=== PATIENT | male | born 1950 | race Caucasian/White ===

== ENCOUNTER 2019-01-25 11:52 | Emergency (ER) | payer MEDICARE, BC ==
[2019-01-25] MEDS ORDERED: AMPICILLIN SOD/SULBACTAM 3 GM VIAL IV ONE (12:09)
[2019-01-25] MEDS ORDERED: ACETAMINOPHEN SOLN 325 MG/10.15 ML UDCUP PO ONE (12:12)
--- NOTE | 2019-01-25 12:14 | ER Document Report ---
ED Medical Screen (RME) - General Chief Complaint: Laceration Stated Complaint: LEFT HAND LACERATION Time Seen by Provider: 01/25/19 12:03 Notes: [id number] male with hypertension and kas-[id number]-haczdeumm diabetes mellitus presents to the emergency department for a left pinky injury sustained just prior to arrival. Patient states he got his finger caught in a luis belt from a boat hoist and has mostly amputated the left pinky finger at the DIP. Patient complains of mild to moderate pain, wound is still bleeding. Exam: No acute distress, the left pinky finger distal to the DIP is mostly amputated hanging on one side and dusky in appearance I have greeted and performed a rapid initial assessment of this patient. A comprehensive ED assessment and evaluation of the patient, analysis of test results and completion of medical decision making process will be conducted by an additional ED providers. TRAVEL OUTSIDE OF THE [place] IN LAST 30 DAYS: No - Related Data Allergies/Adverse Reactions: No Known Allergies Allergy (Unverified 01/25/19 12:09) Past Medical History - Social History Chew tobacco use (# tins/day): No Frequency of alcohol use: None Drug Abuse: None Physical Exam - Vital signs Vitals: Temp Pulse Resp BP Pulse Ox 97.4 F 78 20 163/87 H 92 01/25/19 12:01 01/25/19 12:01/25/19 12:01 01/25/19 12:01/25/19 12:01 Course - Vital Signs Vital signs: Temp Pulse Resp BP Pulse Ox 97.4 F 78 20 163/87 H 92 01/25/19 12:09 01/25/19 12:01/25/19 12:09 01/25/19 12:01/25/19 12:09
[2019-01-25] MEDS ORDERED: DIPH/PERTUSS(ACELL)/TETANUS VAC/PF 0.5 ML SYR (>=10YO) IM ONE (12:27)
--- NOTE | 2019-01-25 13:02 | RADIOLOGY REPORT (SQ) ---
EXAM DESCRIPTION: FINGER LEFT COMPLETED DATE/TIME: 01/25/2019 12:54 pm REASON FOR STUDY: amputation L pinky, injury L ring COMPARISON: None. NUMBER OF VIEWS: Three views. TECHNIQUE: AP, lateral, and oblique images acquired of the left fifth finger. LIMITATIONS: None. FINDINGS: MINERALIZATION: Normal. BONES: Amputation injury of the distal 5th phalanx. Associated soft tissue injury. SOFT TISSUES: As above. OTHER: No other significant finding. IMPRESSION: Amputation injury involving the tuft of the 5th distal phalanx. TECHNICAL DOCUMENTATION: JOB ID: [id number] [employer]- All Rights Reserved Reading location - IP/workstation name: [email or web address]
[2019-01-25] MEDS ORDERED: LIDOCAINE 1% INJ-PF (10 MG/ML) 30 ML SDV ONE (14:29)
[2019-01-25] MEDS ORDERED: LIDOCAINE 1% INJ-PF (10 MG/ML) 30 ML SDV INFIL ONE (14:35)
--- NOTE | 2019-01-25 15:21 | ER Document Report ---
ED General - General Chief Complaint: Laceration Stated Complaint: LEFT HAND LACERATION Time Seen by Provider: 01/25/19 12:03 Primary Care Provider: LEBRON CORTEZ MD [NO LOCAL MD] - Follow up as needed ZEE LAU MD [ACTIVE STAFF] - Follow up as needed TRAVEL OUTSIDE OF THE [place] IN LAST 30 DAYS: No - HPI Notes: Mr. Krishnamurthy is a 68-year-old male with a chief complaint of left hand injury. This man mashed the distal portion of his small ring and middle fingers nondominant left hand and some kind of a drive belt on a lift device for boat about 2 hours prior to arrival here. No other injuries. Last tetanus booster greater than 5 years ago. No known allergies. Past medical history remarkable for hypertension osteoarthritis and "borderline diabetes". Current meds naproxen, valsartan and metformin. - Related Data Allergies/Adverse Reactions: No Known Allergies Allergy (Unverified 01/25/19 12:09) Past Medical History - General Information source: Patient - Social History Smoking Status: Current Every Day Smoker Chew tobacco use (# tins/day): No Frequency of alcohol use: None Drug Abuse: None Family History: Reviewed & Not Pertinent Patient has suicidal ideation: No Patient has homicidal ideation: No - Past Medical History Cardiac Medical History: Reports: Hx Hypertension Pulmonary Medical History: Reports: Hx COPD Endocrine Medical History: Reports: Hx Diabetes Mellitus Type 2 - pre diabetic Past Surgical History: Reports: Hx Orthopedic Surgery - rotator cuff Review of Systems - Review of Systems Notes: Constitutional: Negative for fever. HENT: Negative for sore throat. Eyes: Negative for visual changes. Cardiovascular: Negative for chest pain. Respiratory: Negative for shortness of breath. Gastrointestinal: Negative for abdominal pain, vomiting or diarrhea. Genitourinary: Negative for dysuria. Musculoskeletal: As per HPI. Skin: Negative for rash. Neurological: Negative for headaches, weakness or numbness. 10 point ROS negative except as marked above and in HPI. Physical Exam - Vital signs Vitals: Temp Pulse Resp BP Pulse Ox 97.4 F 78 20 163/87 H 92 01/25/19 12:01 01/25/19 12:01 01/25/19 12:01 01/25/19 12:01 01/25/19 12:01 - Notes Notes: GENERAL: Well-developed well-nourished appearing in no acute distress. SKIN: Good turgor no rashes. HEAD: Normocephalic atraumatic. EYES: PERRLA. Conjunctivae and sclerae clear. EARS: CANALS AND TMS CLEAR. NOSE: CLEAR. MOUTH: Moist mucosa. Good dentition. No stridor or edema. No drooling. NECK: Supple. No masses or thyromegaly. No adenopathy. Carotids 2+ without bruits. No JVD. BACK: Symmetrical without tenderness. CHEST: Respirations unlabored. Breath sounds clear and symmetrical. HEART: Regular rhythm. No murmur gallop or rub. ABDOMEN: Mildly obese. Soft nontender without masses, organomegaly or rebound. Bowel sounds normally active. No bruits. GENITALIA: Deferred. EXTREMITIES: Patient has an open fracture of the distal phalanx of the left fifth finger with exposed bone and complex stellate laceration with venous oozing. Distal sensation is intact. Tissues do not appear devitalized distally. He also has deep abrasions of the volar aspect of the distal phalanges of the ring and middle finger. NEUROLOGICAL: GCS 15. Alert and oriented x3. Normal gait. Fluent speech. Cranial nerves II through XII intact. Sensorimotor and cerebellar normal. Normal tone. Course - Re-evaluation Re-evalutation: 01/25/19 21:00 Digital block was performed and the wound was irrigated and laceration repaired. Finger is been splinted and he is referred to orthopedics for follow-up. While in the emergency department he also received a tetanus booster and a dose of IV Zosyn. He will be sent out on oral analgesics and oral antibiotics. - Vital Signs Vital signs: Temp Pulse Resp BP Pulse Ox 98.1 F 66 16 154/86 H 93 01/25/19 15:45 01/25/19 15:45 01/25/19 15:45 01/25/19 15:45 01/25/19 15:45 Procedures - Laceration/Wound Repair Left 5th digit Wound length (cm): 4.0 Wound's Depth, Shape: Stellate Laceration pre-procedure: Sterile PPE donned, Shur-Clens applied Anesthetic type: Other - digital block Volume Anesthetic (mLs): 5 Wound explored: No foreign body removed Irrigated w/ Saline (mLs): 1,000 Wound Repaired With: Sutures Suture Size/Type: Vicryl, 4:0 Number of Sutures: 6 Layer Closure?: No Post-procedure NV exam normal: Yes Complications: No Discharge - Discharge Clinical Impression: Crushing injury of finger of left hand, Open fracture of distal phalanx of left hand Condition: Stable Disposition: HOME, SELF-CARE Instructions: Laceration Care ([facility]) Additional Instructions: Return here as needed for new or worsening symptoms: Fever/chills, redness progressing up the extremity, nausea/vomiting or uncontrolled pain. See referral orthopedist or your orthopedist within the next 2 to 3 days. Keep splint in place. Prescriptions: Cephalexin Monohydrate [Keflex 500 mg Capsule] 500 mg PO Q6H 10 Days #40 capsule Oxycodone HCl/Acetaminophen [Percocet 5-325 mg Tablet] 1 - 2 tab PO Q4H PRN #15 tablet PRN Reason: Referrals: LEBRON CORTEZ MD [NO LOCAL MD] - Follow up as needed ZEE LAU MD [ACTIVE STAFF] - Follow up as needed
[2019-01-25 15:44] VITALS: BP 154/86
== END 2019-01-25 15:46 | disposition home or self-care (01) ==
LOC: ER 11:52
DX: S61.412A Laceration without foreign body of left hand, initial encounter (principal); S62.637B Displaced fracture of distal phalanx of left little finger, initial encounter for open fracture; W24.0XXA Contact with lifting devices, not elsewhere classified, initial encounter; F17.200 Nicotine dependence, unspecified, uncomplicated; Z23 Encounter for immunization; I10 Essential (primary) hypertension
CPT/HCPCS: 99283; 90471; 96365; 73140; 90715; 12002; J0295; J3490; A9270